=== PATIENT | female | born 1950 | race Caucasian/White ===

== ENCOUNTER → 2017-01-07 | Outpatient (CLI) | payer OTHER ==
[2017-01-07 16:55] LABS: FREE T4 (FREE THYROXINE) 1.41 ng/dL (0.93-1.71)
== END ==
LOC: LAB 15:42
PROVIDERS: ATTEND Obstetrics & Gynecology Gynecology
DX: E05.00 Thyrotoxicosis with diffuse goiter without thyrotoxic crisis or storm (principal)
CPT/HCPCS: 36415; 84439; 84443

== ENCOUNTER → 2017-04-28 | Outpatient (CLI) | payer OTHER ==
[2017-04-28 13:46] LABS: FREE T4 (FREE THYROXINE) 0.98 ng/dL (0.93-1.71)
== END ==
LOC: LAB 12:25
PROVIDERS: ATTEND Obstetrics & Gynecology Gynecology
DX: E05.00 Thyrotoxicosis with diffuse goiter without thyrotoxic crisis or storm (principal)
CPT/HCPCS: 36415; 84439; 84443